=== PATIENT | female | born 1940 | race African-American/Black ===

== ENCOUNTER 2019-08-09 12:09 | Observation (INO) ==
[2019-08-09 13:22] LABS: BASO# 0.03 X1000 (0.0-0.2); BASO% 0.5 % (0.0-0.8); EOS# 0.14 X1000 (0.0-0.7); EOS% 2.1 % (0.0-10.0); HEMATOCRIT 36.9 % (37.0-47.0); HEMOGLOBIN 11.7 g/dL (12.0-16.0); LYMPH# 1.53 X1000 (1.2-3.4); LYMPH% 23.1 % (20.5-51.1); MCH 28.3 PG (27-31); MCHC 31.7 g/dL (33-37); MCV 89.3 FL (81-99); MONO# 0.52 X1000 (0.11-0.59); MONO% 7.9 % (1.7-9.3); MPV 11.2 FL (7.4-10.4); NEUT% 66.4 % (42.2-75.2); PLT 232 X1000 (130-400); RBC 4.13 XMIL (4.2-5.4); RDW 14.9 % (11.5-14.5); WBC 6.62 X1000 (4.8-10.8)
[2019-08-09 13:32] LABS: INR 1.06
[2019-08-09 13:33] LABS: PTT 39.5 Seconds (22.3-41.8)
[2019-08-09 13:50] LABS: AGAP 11; ALB/GLOB RATIO 1.5; ALBUMIN 4.4 g/dL (3.5-5.0); ALKALINE PHOSPHATASE 56 U/L (32-104); BUN 23 mg/dL (8-22); CALCIUM 9.3 mg/dL (8.8-10.2); CHLORIDE 102 mmol/L (98-107); COSMO 281; ESTIMATED GFR > 60; GLUCOSE 97 mg/dL (70-104); GOT 21 U/L (10-30); GPT 10 U/L (10-36); POTASSIUM 4.2 mmol/L (3.5-5.1); SODIUM 139 mmol/L (136-145); TCO2 26 mmol/L (25-35); TOTAL BILIRUBIN 0.44 mg/dL (0.20-1.00); TOTAL PROTEIN 7.3 g/dL (6.3-8.3)
--- NOTE | 2019-08-09 14:09 | Diag Imaging Result Doc PS360 ---
EXAM: KUB ABDOMEN 08/09/2019 HISTORY: rectal bleed TECHNIQUE: KUB COMMENT: There is some stool and gas distributed throughout the colon without evidence of dilatation. The stomach and small bowel are not distended. There is no evidence organomegaly or mass. IMPRESSION: Nonspecific abdomen. Electronically signed by Julien Pope 08/09/2019 2:07 PM
--- NOTE | 2019-08-09 14:10 | Diag Imaging Result Doc PS360 ---
EXAM: CHEST-PORTABLE 08/09/2019 HISTORY: asthma TECHNIQUE: AP portable upright at 1359 COMMENT: The inspiration is suboptimal. There is a granuloma in the right upper lobe. Compared to 12/04/2014 there has been no significant change. Heart size appears to remain enlarged. IMPRESSION: Stable chest. Electronically signed by Julien Pope 08/09/2019 2:08 PM
[2019-08-09] MEDS: SODIUM CHLORIDE 0.9% INJ SCH (15:04)
[2019-08-09] MEDS: PROTONIX IV SCH (15:04)
[2019-08-09] MEDS: NS 1,000 ML IV SCH (15:04)
--- NOTE | 2019-08-09 17:39 | GASTROENTEROLOGY CONSULTATION ---
DATE: 08/09/2019 REASON FOR CONSULT: Rectal bleeding. HISTORY OF PRESENT ILLNESS: Ms. Jones is a 79-year-old, -[place] female, with a history of hypertension, cholesterol, arthritis, and asthma, came to the hospital this afternoon. She mentioned that from Tuesday evening onwards, she noted bright red blood in her stools with some blood clots. Today, she he went to her primary care provider and he did a rectal exam, and noticed that she had some blood on the exam. The patient mentioned that she was feeling dizzy, but she did not have any symptoms of fever, chills, shortness of breath. She has also denied any nausea, vomiting, or abdominal pain. She mentioned that she does have a regular bowel movement and she has never had any problems with her bowel movements. The patient had a colonoscopy done on 03/21/2015, and the findings were internal grade 2 hemorrhoids in the anus, moderately severe diverticulosis found in the hepatic flexure, descending colon, sigmoid colon and rectosigmoid junction, and tortuosity of the rectosigmoid junction, sigmoid colon, and descending colon. The patient did mention that she takes Mobic as and when needed for her arthritis. PAST MEDICAL HISTORY: Hypertension, cholesterol, arthritis, asthma. PAST SURGICAL HISTORY: Hysterectomy, lumpectomy, and cataract surgery bilaterally. ALLERGIES: No known drug allergies. SOCIAL HISTORY: The patient is single. She has 4 kids. She is a past alcoholic, but has denied any smoking or alcohol. She mentioned she stays with her daughter. FAMILY HISTORY: Her sister had colon cancer. HOME MEDICATIONS: Meloxicam 15 mg p.o. daily as needed, losartan/hydrochlorothiazide 100/12.5 mg p.o. daily, levothyroxine 0.05 mg p.o. daily, Prilosec 20 mg p.o. daily, simvastatin 40 mg p.o. at bedtime, amlodipine besylate 5 mg p.o. daily. REVIEW OF SYSTEMS: As per HPI. Otherwise, 12-point review of systems is negative. PHYSICAL EXAMINATION: Vital Signs: Temperature 97.8, pulse 56, blood pressure 150/65, oxygen saturation 97% on room air. The patient's weight is 169 pounds. BMI is 29.0 kg/m2. General: She is alert, oriented x3, and in no acute distress. Answering questions appropriately. HEENT: Pale conjunctivae. No icterus. PERRL. Neck: Supple. Lungs: Clear to auscultation in the anterior dickinson. Cardiovascular: Regular rate and rhythm. Abdomen: Soft, nontender, nondistended. Active bowel sounds heard in all 4 quadrants. Extremities: No clubbing, no cyanosis, no edema. Pedal pulses 2+ present bilaterally. Neurologic: She is alert, oriented x3. Nonfocal. Cranial nerves 2-12 grossly intact. LABORATORY AND DIAGNOSTIC DATA: WBCs 6.62, RBC 4.13, hemoglobin 11.7, hematocrit is 36.9, platelet count is 232,000. PT is 14.0, INR is 1.06. Sodium is 139, potassium 4.2, chloride 102, carbon dioxide 26, anion gap 11, BUN 23, creatinine 1.0, glucose 97, calcium 9.3. Total bilirubin 0.44, AST 21, ALT 10, alkaline phosphatase 56, albumin is 4.4. Chest x-ray has showed a stable chest. Abdominal x-ray has showed nonspecific abdomen. IMPRESSION AND PLAN: Rectal bleeding Hemorrhoids Diverticulosis Hypertension Arthritis H/o NSAIDs use like Mobic-may need EGD if colonoscopy is negative PLAN: Ms. Jones is a 79-year-old, -[place] female, who presented to the hospital with complaints of rectal bleeding. Gastroenterology has been consulted for her rectal bleeding. We plan to do a colonoscopy tomorrow with Dr Torres. The patient is currently on IV fluids, normal saline @ 85 ml/hour. She is receiving GI prophylaxis Protonix IV 40 mg daily. The patient's hemoglobin and hematocrit are 11.7 and 36.9. She is hemodynamically stable. Further plan of care will be based on the colonoscopy findings. We have discussed the risks, benefits, and alternatives of the procedure to the patient. The patient acknowledges understanding of the plan of care. This plan was discussed with Dr. Cruz. Thank you for your consult. Please call us for any further questions or concerns. Dictated by JUDSON Henry for Nickolas Cruz MD cc: MD Julio Yun MD [facility]
[2019-08-09] MEDS: GOLYTELY PO ONE ×2 (18:47)
--- NOTE | 2019-08-09 19:23 | HISTORY AND PHYSICAL ---
CHIEF COMPLAINT: Rectal bleed. HISTORY OF PRESENT ILLNESS: Ms. Jones is a 79-year-old patient, complaining of bleeding per rectum going on for last 3 days. Bleeding is fresh bleeding per rectum off and on. Lately, it was more blood. The patient denied significant pain. Blood was moderate in amount. The patient was getting weak and dizzy at times. She came for evaluation. I evaluated patient in the office. On rectal exam, the patient did have some blood on examining finger. Because of her history of rectal bleed, age, weakness and dizziness, I decided to admit the patient for observation and further workup. The patient did have a similar problem last year which subsided by itself. The patient had a colonoscopy about 4 years ago, which did reveal diverticulosis, but no malignancy in. Denied perirectal pain. No fever or chills. No abdominal distention. No bleeding anywhere else in the form of nosebleed or hematuria. No history of vaginal bleeding. No major weight loss or weight gain. No heat or cold intolerance. The patient does have history of arthritis for which patient takes Mobic on p.r.n. basis. No further history available at this time. No dysphagia or odynophagia. Denied epigastric pain. No diarrhea, alternating with constipation. Denied dysuria or hematuria. The patient does have polyuria and polydipsia. No heat or cold intolerance. No focal weakness. No further history available at this time. ALLERGIES: No known drug allergy. MEDICATIONS: Includes Mobic, Hyzaar, Synthroid, Prilosec, Zocor, Norvasc. PAST MEDICAL HISTORY: Hypertension, hyperlipidemia, osteoarthritis, hypothyroidism, gastritis, history of lumpectomy, hysterectomy and cataract surgery. The patient does have a history of asthma and osteoarthritis. SOCIAL HISTORY: Single, nonsmoker. Denied alcohol or substance abuse. FAMILY HISTORY: Significant for sister with colon cancer. REVIEW OF SYSTEMS: As per HPI. Otherwise, unobtainable. PHYSICAL EXAMINATION: GENERAL: Elderly patient in no acute distress. VITAL SIGNS: Blood pressure 141/65, pulse 61, respiration 18, temperature 98.6 degrees. SKIN: No rash or petechiae. HEENT: Head atraumatic, normocephalic. [place] conjunctivae. Anicteric sclerae. Extraocular muscle movement normal. Fundus cannot be penetrated. Good oral hygiene. No tonsillopharyngeal congestion or exudate. Ears and nose benign. NECK: Supple. No JVD, thyromegaly or lymphadenopathy. CHEST: Bilateral good air entry present. Few basal crepitations. No rales. CARDIOVASCULAR: S1 and S2 heard. No gallop or thrill. ABDOMEN: Soft. No distention. Bowel sounds present. No organomegaly or mass. RECTAL EXAM: Rectum was empty. There was soft stool on examining finger, which was red in color. EXTREMITIES: No cyanosis, clubbing. Crepitation both the knee joints. No acute DVT. CENTRAL NERVOUS SYSTEM: Alert, awake, able to move all 4 limbs. CONSIDERATION: Lower gastrointestinal bleed, moderate in amount. Differential includes diverticular bleed. Other consideration hemorrhoid. Doubt malignancy but considering her age cannot be ruled out. The patient is symptomatic. I am going to admit her for observation. The patient will need colonoscopy. Her other problems include hypertension, hyperlipidemia, hypothyroidism, osteoarthritis. PLAN: Is to hold Mobic. Monitor hemoglobin and hematocrit. Gastrointestinal consult. IV hydration. Close observation. The overall plan discussed at length with the patient and family. They are in agreement. LAB: Data hemoglobin 11.7, hematocrit 36.9, WBC count 6.62, platelet count 232,000. Electrolytes were fairly benign. BUN 23, creatinine 1. Sodium 139. Blood group was O negative. I did chest x-ray, which was stable chest. Abdominal x-ray was also benign. Plan is to admit the patient, serial hemoglobin and hematocrit, IV hydration, symptomatic treatment, IV proton pump inhibitor. cc: Julio Dennis MD
[2019-08-09] MEDS: ZOCOR PO SCH (20:43)
[2019-08-10] MEDS: NS 1,000 ML IV SCH ×2 (03:34→16:52)
[2019-08-10] MEDS: SYNTHROID PO SCH (06:52)
--- NOTE | 2019-08-10 07:24 | PROGRESS NOTE ---
DATE: 08/10/2019 SUBJECTIVE: Ms Jones is doing better. The patient still has some blood in the stool. The patient is getting a prep for colonoscopy. No major abdominal pain. No fever or chills. Denied any nausea or vomiting. No typical chest pain. No bleeding anywhere else. Patient admitted with rectal bleed. OBJECTIVE: Vital signs: Noted. Neck: Supple. No JVD. Lungs: Bilateral good air entry present. Cardiovascular: S1 and S2 heard. Abdomen: Soft, nontender. Bowel sounds present. Extremities: No cyanosis, clubbing. No acute DVT. Crepitation both the knee joints. Central nervous system: Alert, awake. Able to move all 4 limbs. CONSIDERATION: Patient admitted with lower gastrointestinal bleed with her presentation more consistent with diverticulosis. Her other problems include osteoarthritis, advised her not to take any Mobic or aspirin, hypertension, hyperlipidemia. We will continue current treatment. The patient is scheduled to have colonoscopy today. After reviewing the results, we will make further recommendations. Advised her to be on clear to full liquid diet. cc: Julio Dennis MD
[2019-08-10 08:59] LABS: BASO# 0.03 X1000 (0.0-0.2); BASO% 0.6 % (0.0-0.8); EOS# 0.19 X1000 (0.0-0.7); EOS% 3.8 % (0.0-10.0); HEMATOCRIT 35.9 % (37.0-47.0); HEMOGLOBIN 11.3 g/dL (12.0-16.0); LYMPH# 1.31 X1000 (1.2-3.4); LYMPH% 25.9 % (20.5-51.1); MCH 28.5 PG (27-31); MCHC 31.5 g/dL (33-37); MCV 90.7 FL (81-99); MONO# 0.37 X1000 (0.11-0.59); MONO% 7.3 % (1.7-9.3); MPV 10.9 FL (7.4-10.4); NEUT# 3.15 X1000 (1.4-6.5); NEUT% 62.4 % (42.2-75.2); PLT 215 X1000 (130-400); RBC 3.96 XMIL (4.2-5.4); RDW 14.8 % (11.5-14.5); WBC 5.05 X1000 (4.8-10.8)
[2019-08-10 09:17] LABS: AGAP 14; ALB/GLOB RATIO 1.5; ALBUMIN 3.9 g/dL (3.5-5.0); ALKALINE PHOSPHATASE 50 U/L (32-104); BUN 15 mg/dL (8-22); CALCIUM 9.1 mg/dL (8.8-10.2); CHLORIDE 106 mmol/L (98-107); COSMO 287; CREATININE 0.9 mg/dL (0.5-0.9); ESTIMATED GFR > 60; GLUCOSE 94 mg/dL (70-104); GOT 19 U/L (10-30); GPT 10 U/L (10-36); POTASSIUM 3.9 mmol/L (3.5-5.1); SODIUM 144 mmol/L (136-145); TCO2 24 mmol/L (25-35); TOTAL BILIRUBIN 0.56 mg/dL (0.20-1.00); TOTAL PROTEIN 6.5 g/dL (6.3-8.3)
[2019-08-10] MEDS: NORVASC PO SCH (09:21)
[2019-08-10] MEDS ORDERED: XYLOCAINE-MPF 2% ONE (10:42)
[2019-08-10] MEDS ORDERED: ROBINUL ONE (10:42)
[2019-08-10] MEDS ORDERED: DIPRIVAN 1% ONE (10:42)
--- NOTE | 2019-08-10 11:33 | ENDOSCOPY OPERATIVE NOTE ---
[facility] ENDOSCOPY OPERATIVE NOTE , COLONOSCOPY PROCEDURE REPORT EXAM DATE: 08/10/2019 PATIENT NAME: Marian Jones MR #: [id number] BIRTHDATE: 1940 ENDOSCOPIST: Troy Torres MD STATUS: inpatient TRANSPORTATION MAINTENANCE SPECIALIST: INDICATIONS: The patient is a 79 yr old female here for a colonoscopy due to hematochezia. PROCEDURE PERFORMED: Colonoscopy, diagnostic MEDICATIONS: Per Anesthesia PREP TYPE: GoLytely
[2019-08-10] MEDS: PROTONIX IV SCH (13:52)
[2019-08-10] MEDS: SODIUM CHLORIDE 0.9% INJ SCH (13:53)
[2019-08-10] MEDS ORDERED: KLOR-CON PO ONE (16:38)
--- NOTE | 2019-08-10 17:55 | PROGRESS NOTE ---
DATE: 08/10/2019 SUBJECTIVE: Ms Jones is feeling better. She denied any chest pain, palpitations. Patient underwent colonoscopy for lower GI bleed which revealed diverticulosis. No active bleeding. No nausea or vomiting. I discussed her colonoscope finding with Dr. Torres. The plan is to observe patient today. If clinical condition permits, we will plan to discharge patient home tomorrow. Overall discharge plan discussed at length with the patient and family. ASSESSMENT/PLAN: Advised her to be on a full liquid diet for another 48 to 72 hours, avoid anti- inflammatory medicine and aspirin, plenty of liquids orally. Follow up with me on . In case of more distress, call us back or go to the emergency room. Advised her to stopped Mobic. I am going to repeat CBC tomorrow and will plan to discharge her tomorrow. cc: Julio Dennis MD
[2019-08-10 19:29] LABS: URINE SOURCE CLEAN CATCH
[2019-08-10 19:33] LABS: BILIRUBIN URINE NEGATIVE (NEGATIVE); BLOOD URINE NEGATIVE (NEGATIVE); COLOR STRAW; GLUCOSE URINE NEGATIVE (NEGATIVE); KETONE URINE TRACE mg/dL (NEGATIVE); LEUKOCYTES URINE NEGATIVE (NEGATIVE); NITRITE URINE NEGATIVE (NEGATIVE); PH URINE 5.5; PROTEIN URINE NEGATIVE (NEGATIVE); SP GRAVITY URINE 1.006; TURBIDITY URINE CLEAR (CLEAR); UROBILINOGEN URINE NORMAL (NORMAL)
[2019-08-10 19:35] LABS: UR EPITHELIAL CELLS <10 /HPF (<10); URINE BACTERIA NEGATIVE /HPF; URINE RBC <10 /HPF (<10); URINE WBC <10 /HPF (<10)
[2019-08-10] MEDS: ZOCOR PO SCH (21:00)
[2019-08-11] MEDS: NS 1,000 ML IV SCH (03:47)
[2019-08-11] MEDS: SYNTHROID PO SCH (06:23)
[2019-08-11 07:46] LABS: HEMOGLOBIN 9.5 g/dL (12.0-16.0); MCH 27.8 PG (27-31); MCHC 30.6 g/dL (33-37); MCV 90.6 FL (81-99); MPV 11.4 FL (7.4-10.4); RBC 3.42 XMIL (4.2-5.4); RDW 14.7 % (11.5-14.5); WBC 3.78 X1000 (4.8-10.8)
[2019-08-11] MEDS: NORVASC PO SCH (09:19)
[2019-08-11 11:44] VITALS: BP 140/68
--- NOTE | 2019-08-11 13:46 | PROGRESS NOTE ---
DATE: 08/11/2019 Ms. Jones is stable. As suggested by Dr. Dennis, we are going to discharge her. She has diverticulosis of the colon. Her hemoglobin is 9.5 and hematocrit is 3.1. -7 cc: MD Julio Yancey MD
== END 2019-08-11 12:59 | disposition home or self-care (01) ==
LOC: DIRADM → EDIPHOLD 12:09 → 3N 14:17
PROVIDERS: ADMIT Internal Medicine; ATTEND Internal Medicine